=== PATIENT | female | born 1990 | race Caucasian/White ===

== ENCOUNTER 2017-01-29 16:16 | Emergency (ER) | payer OTHER ==
[2017-01-29] MEDS ORDERED: Ketorolac INJ* 30 MG/ML 1 ML VIAL IV PUSH ONE (17:26)
[2017-01-29] MEDS ORDERED: NS 0.9% 1000 ML* 1,000 ML IV ONE (17:39)
[2017-01-29 18:15] LABS: Hematocrit 39 % (35-47); Hemoglobin 13.2 g/dl (12.0-16.0); Mean Corpuscular HGB Conc 34 g/dl (31-36); Mean Corpuscular Hemoglobin 29 pg (27-31); Mean Corpuscular Volume 85 fL (80-97); Mean Platelet Volume 8 um3 (7.4-10.4); Red Blood Count 4.52 10^6/ul (4.0-5.4); Red Cell Distribution Width 15 % (10.5-15); White Blood Count 7.9 10^3/ul (3.5-10.8)
[2017-01-29 18:27] LABS: ALT 13 U/L (7-52); AST 16 U/L (13-39); Albumin 4.2 g/dL (3.2-5.2); Alkaline Phosphatase 36 U/L (34-104); Anion Gap 5 mmol/L (2-11); BUN/Creatinine Ratio 16.4 (8-20); Blood Urea Nitrogen 12 mg/dL (6-24); CO2 Carbon Dioxide 26 mmol/L (22-32); Calcium 9.1 mg/dL (8.6-10.3); Chloride 107 mmol/L (101-111); EGFR Non-African American 97.9 (>60); Globulin 2.1 g/dL (2-4); Glucose 85 mg/dL (70-100); Lipase 21 U/L (11.0-82.0); Potassium 3.9 mmol/L (3.5-5.0); Sodium 138 mmol/L (133-145); Total Protein 6.3 g/dL (6.4-8.9)
--- NOTE | 2017-01-29 18:50 | RAD ---
HISTORY: Left lower quadrant pain COMPARISONS: None TECHNIQUE: Multiple transverse and longitudinal ultrasound images were obtained of the pelvis using grayscale, color Doppler, and spectral Doppler imaging using the transabdominal transducer. FINDINGS: UTERUS: The uterus measures 8.4 x 5.2 x 6.1 cm. The uterus is normal in shape, size, contour, and echotexture. ENDOMETRIUM: The endometrial stripe is smooth. The endometrium measures 1 cm in thickness. CUL-DE-SAC: There is a small amount of simple fluid within the cul-de-sac. This may be physiologic in a reproductive age female. RIGHT OVARY: The right ovary measures 6.2 x 4.7 x 5.6 cm. Normal arterial and venous waveforms are identifiable within the ovary on spectral Doppler imaging. There is a complicated right ovarian cyst with a fluid-fluid level most consistent with a hemorrhagic cyst measuring 5.3 x 5.6 x 4.7 cm. LEFT OVARY: The left ovary measures 5.1 x 5.3 x 5.3 cm. Normal arterial and venous waveforms are identifiable within the ovary on spectral Doppler imaging. There is a complicated cyst of left ovary most consistent with a hemorrhagic cyst measuring 5.7 x 5.9 x 4.7 cm. BLADDER: The visualized bladder is unremarkable. OTHER: None IMPRESSION: 1. BILATERAL HEMORRHAGIC OVARIAN CYSTS. 2. NO SONOGRAPHIC FEATURES OF TORSION. PLEASE NOTE THAT PARTIAL OR INTERMITTENT TORSION MAY BE SONOGRAPHICALLY NORMAL.
[2017-01-29 19:35] LABS: Urine Bacteria Absent (Absent); Urine Bilirubin Negative (Negative); Urine Glucose Negative (Negative); Urine Nitrite Negative (Negative)
--- NOTE | 2017-01-29 19:54 | ED ---
Abdominal Pain/Female - HPI Summary HPI Summary: 26F presents with LLQ for couple days. The pain radiates to the back. She has been seen by Romain and had normal labs. no n/v/d. no dysuria, hematuria, flank pain, urgency or frequency. never had this pain before. no vaginal discharge. no previous abdominal surgeries. no history of ovarian cyst. no chance is . pain is sharp and lasts for hours on end. - History of Current Complaint Chief Complaint: EDAbdPain Stated Complaint: NEEDS ABD SCANS PER [facility] Time Seen by Provider: 01/29/17 17:17 Pain Intensity: 2 Allergies/Adverse Reactions: Allergies Allergy/AdvReac Type Severity Reaction Status Date / Time No Known Allergies Allergy Verified 01/29/17 16:23 PMH/Surg Hx/FS Hx/Imm Hx Endocrine/Hematology History: Denies: Hx Anticoagulant Therapy Cardiovascular History: Denies: Hx Hypertension Infectious Disease History: No Infectious Disease History: Denies: Traveled Outside the [place] in Last 30 Days - Family History Known Family History: Positive: Other - no GI family history - Social History Alcohol Use: Occasionally Substance Use Type: Reports: None Smoking Status (MU): Never Smoked Tobacco Review of Systems Negative: Fever Negative: Chest Pain Negative: Shortness Of Breath Positive: Abdominal Pain. Negative: Vomiting, Diarrhea, Nausea All Other Systems Reviewed And Are Negative: Yes Physical Exam Triage Information Reviewed: Yes Vital Signs On Initial Exam: Initial Vitals Temp Pulse Resp BP Pulse Ox 98.1 F 62 20 122/65 100 01/29/17 16:20 01/29/17 16:20 01/29/17 16:20 01/29/17 16:20 01/29/17 16:20 Vital Signs Reviewed: Yes Appearance: Positive: Well-Appearing Skin: Positive: Warm, Dry Head/Face: Positive: Normal Head/Face Inspection Eyes: Positive: Normal, EOMI, BEBO, Conjunctiva Clear ENT: Positive: Normal ENT inspection, Pharynx normal, TMs normal Respiratory/Lung Sounds: Positive: Clear to Auscultation, Breath Sounds Present Cardiovascular: Positive: Normal, RRR Abdomen Description: Positive: Soft, Other: - tenderness in LLQ. Negative: CVA Tenderness (R), CVA Tenderness (L) Bowel Sounds: Positive: Present Musculoskeletal: Positive: Normal Neurological: Positive: Normal Psychiatric: Positive: Normal - Josefina Coma Scale Coma Scale Total: 15 Diagnostics - Vital Signs Vital Signs Temp Pulse Resp BP Pulse Ox 01/29/17 16:20 98.1 F 62 20 122/65 100 - Laboratory Lab Results: Lab Results 01/29/17 01/29/17 01/29/17 Range/Units 17:30 17:30 19:20 WBC 7.9 (3.5-10.8) 10^3/ul RBC 4.52 (4.0-5.4) 10^6/ul Hgb 13.2 (12.0-16.0) g/dl Hct 39 (35-47) % MCV 85 (80-97) fL MCH 29 (27-31) pg MCHC 34 (31-36) g/dl RDW 15 (10.5-15) % Plt Count 189 (150-450) 10^3/ul MPV 8 (7.4-10.4) um3 Neut % (Auto) 58.0 (38-83) % Lymph % (Auto) 32.5 (25-47) % Mckenzie % (Auto) 7.9 (1-9) % Eos % (Auto) 0.9 (0-6) % Baso % (Auto) 0.7 (0-2) % Absolute Neuts (auto) 4.6 (1.5-7.7) 10^3/ul Absolute Lymphs (auto) 2.6 (1.0-4.8) 10^3/ul Absolute Monos (auto) 0.6 (0-0.8) 10^3/ul Absolute Eos (auto) 0.1 (0-0.6) 10^3/ul Absolute Basos (auto) 0.1 (0-0.2) 10^3/ul Absolute Nucleated RBC 0 10^3/ul Nucleated RBC % 0 Sodium 138 (133-145) mmol/L Potassium 3.9 (3.5-5.0) mmol/L Chloride 107 (101-111) mmol/L Carbon Dioxide 26 (22-32) mmol/L Anion Gap 5 (2-11) mmol/L BUN 12 (6-24) mg/dL Creatinine 0.73 (0.51-0.95) mg/dL Est GFR ( Amer) 126.0 (>60) Est GFR (Non-Af Amer) 97.9 (>60) BUN/Creatinine Ratio 16.4 (8-20) Glucose 85 (70-100) mg/dL Calcium 9.1 (8.6-10.3) mg/dL Total Bilirubin 0.40 (0.2-1.0) mg/dL AST 16 (13-39) U/L ALT 13 (7-52) U/L Alkaline Phosphatase 36 (34-104) U/L C-React Prot High Sens < 0.20 mg/L Total Protein 6.3 L (6.4-8.9) g/dL Albumin 4.2 (3.2-5.2) g/dL Globulin 2.1 (2-4) g/dL Albumin/Globulin Ratio 2.0 (1-3) Lipase 21 (11.0-82.0) U/L Beta HCG, Quant < 0.60 mIU/mL Urine Color Yellow Urine Appearance Cloudy Urine pH 7.0 (5-9) Ur Specific [place] 1.018 (1.010-1.030) Urine Protein Negative (Negative) Urine Ketones Negative (Negative) Urine Blood Negative (Negative) Urine Nitrate Negative (Negative) Urine Bilirubin Negative (Negative) Urine Urobilinogen Negative (Negative) Ur Leukocyte Esterase Trace H (Negative) Urine WBC (Auto) Trace(0-5/hpf) (Absent) Urine RBC (Auto) Trace(0-2/hpf) (Absent) Ur Squamous Epith Cells Present H (Absent) Amorphous Crystals Present H (Absent) Urine Bacteria Absent (Absent) Urine Glucose Negative (Negative) Result Diagrams: 01/29/17 17:30 01/29/17 17:30 Lab Statement: Any lab studies that have been ordered have been reviewed, and results considered in the medical decision making process. - Ultrasound No standard instances Ultrasound Interpretation: Positive (See Comments) - IMPRESSION: 1. BILATERAL HEMORRHAGIC OVARIAN CYSTS. 2. NO SONOGRAPHIC FEATURES OF TORSION. PLEASE NOTE THAT PARTIAL OR INTERMITTENT TORSION MAY BE SONOGRAPHICALLY NORMAL. Ultrasound Interpretation Completed By: Radiologist Abdominal Pain Fem Course/Dx - Course Course Of Treatment: 26F presents with LLQ for couple days. The pain radiates to the back. She has been seen by Romain and had normal labs. no n/v/d. no dysuria, hematuria, flank pain, urgency or frequency. never had this pain before. no vaginal discharge. no previous abdominal surgeries. no history of ovarian cyst. no chance is . pain is sharp and lasts for hours on end. on exam tenderness in LLQ. neg CVA tenderness. labs normal. u/s shows hemorrhagic cysts bilateral. vitals stable discussed case with dr mckeon said can discharge home will follow up obgyn. patient understand and agrees with plan. - Diagnoses Differential Diagnosis: Positive: Ovarian Cyst, Urinary Tract Infection, Other - pyelo Provider Diagnoses: Hemorrhagic cyst of ovary Discharge - Discharge Plan Condition: Good Disposition: HOME Prescriptions: HYDROcodone/ACETAMIN 5-325 MG* [[place] 5-325 TAB*] 1 tab PO Q6H PRN #10 tab MDD 4 PRN Reason: Pain - Severe Patient Education Materials: Ovarian Cyst (ED) Referrals: [facility] - [place] GÓMEZ [Primary Care Provider] - Rome Blas MD [Medical Doctor] - Additional Instructions: Place heat on area Take Tylenol or ibuprofen every 6 hours, use narcotic for break through pain Follow up with obgyn Return to ED if abdomen becomes rigidity or fever develop any new or worsening symptoms
[2017-01-29] MEDS ORDERED: HYDROcodone/ACETAMIN 5-325 MG* 1 TAB PO ONE (19:57)
[2017-01-29 20:25] VITALS: BP 103/57
== END 2017-01-29 20:25 | disposition home or self-care (01) ==
LOC: ED 16:16
DX: N83.202 Unspecified ovarian cyst, left side (principal); N83.201 Unspecified ovarian cyst, right side
CPT/HCPCS: 36415; 76856; 80053; 81003; 81015; 83690; 84702; 85025; 86141; 87086; 96360; 96374; 99283; J1885